=== PATIENT | male | born 1960 | race Caucasian/White ===

== ENCOUNTER 2024-01-01 06:47 | Observation (INO) | payer OTHER, SELFPAY ==
[2024-01-01] VITALS (34 sets, daily range): BP systolic 97–133; BP diastolic 63–77; PULSE 46–71; TEMP 36.4–36.7; O2SAT 93–99; BMI 33.2; BMI 33.8
--- NOTE | 2024-01-01 07:28 | ECG_ITS ---
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
--- NOTE | 2024-01-01 07:28 | XR_ITS ---
The [address] [address] Patient Name: BERNICE JOYA MRN: [id number] date: 1960 Sex: M Assigned Patient Location: ED.MAIN Current Patient Location: ER Accession/Order Number: [id number] Exam Date: 01/01/2024 08:20 Report Date: 01/01/2024 08:42 At the request of: ROLF BUCHANAN Procedure: XR chest 1V EXAM: XR chest 1V HISTORY: Syncope. COMPARISON: Chest radiograph dated 01/28/2013 and CTA chest dated 10/31/2014. TECHNIQUE: AP erect portable chest radiograph performed. FINDINGS: The trachea is midline. There is stable mild prominence of the cardiac silhouette. The mediastinal silhouette and hilar shadows are within normal limits. There is no consolidation, pleural effusion or pulmonary vascular congestion. There is no pneumothorax. There is no acute osseous abnormality. XR/XR chest 1V IMPRESSION: There is no acute cardiopulmonary process. Please correlate with the CTA chest examination dated 01/01/2024 which has been ordered however not yet completed. Electronically authenticated by: AD SALAZAR Date: 01/01/2024 08:42
--- NOTE | 2024-01-01 07:28 | CT_ITS ---
The [address] [address] Patient Name: BERNICE JOYA MRN: [id number] date: 1960 Sex: M Assigned Patient Location: ER Current Patient Location: ER Accession/Order Number: [id number] Exam Date: 01/01/2024 08:20 Report Date: 01/01/2024 08:58 At the request of: ROLF BUCHANAN Procedure: CT head/brain wo con CT head/brain wo con, 01/01/2024 8:20 AM EDT INDICATION: syncope COMPARISON: There is no appropriate prior study for comparison. TECHNIQUE: Axial CT images of the brain from skull base to vertex, including portions of the face and sinuses, were obtained without contrast . Multiplanar reformatted images were generated and reviewed as needed. Dose reduction techniques were achieved by using automated exposure control and/or adjustment of mA and/or kV according to patient size and/or use of iterative reconstruction technique. FINDINGS: The cerebral sulci as well as ventricular system are appropriate for age. There is no intracranial mass, mass effect, midline shift, intra or extra-axial fluid collection or hemorrhage. Mucosal thickening within the maxillary right frontal sinuses is noted. The visualized portions of orbits, mastoid air cells as well as remainder of paranasal sinuses are unremarkable. There is focal lysis of the left frontal inner table. Otherwise, no other suspicious intraosseous lesion is noted. CT/CT head/brain wo con IMPRESSION: No acute intracranial process is noted. Focal lysis of the left frontal inner table. A nonurgent MRI with injection of contrast is recommended for further evaluation. Electronically authenticated by: SD ALVARADO Date: 01/01/2024 08:58
--- NOTE | 2024-01-01 07:28 | CT_ITS ---
[address] [address] Patient Name: BERNICE JOYA MRN: [id number] date: 1960 Sex: M Assigned Patient Location: ER Current Patient Location: [facility] Accession/Order Number: [id number] Exam Date: 01/01/2024 08:20 Report Date: 01/01/2024 09:07 At the request of: ROLF BUCHANAN Procedure: CT angio chest EXAMINATION: CT angio chest HISTORY: syncope, hx of PE COMPARISON: No relevant comparison available. TECHNIQUE: Multi-planar CT images were created with IV contrast. Axial, Coronal, and Sagittal images. Dose reduction techniques were achieved by using automated exposure control and/or adjustment of mA and/or kV according to patient size and/or use of iterative reconstruction technique. FINDINGS: LUNGS: Calcified nodule left lower lobe likely granuloma. Minimal dependent atelectasis. PLEURA: No mass, effusion, or pneumothorax. VASCULATURE: Normal postcontrast opacification of the central pulmonary arterial tree VENU: No mass or adenopathy. MEDIASTINUM: No mass or adenopathy. CARDIAC: No enlargement or pericardial effusion Coronary arteries: Absent calcifications AORTA: No aortic aneurysm or dissection CHEST WALL: No mass or axillary adenopathy. BONES: No bone lesion or fracture. LIMITED ABDOMEN: No suspicious findings. Limited images of the upper abdomen. OTHER: Negative. CT/CT angio chest IMPRESSION: No central pulmonary thromboembolic disease Electronically authenticated by: WINSTON ARCHIBALD Date: 01/01/2024 09:07
--- NOTE | 2024-01-01 07:35 | ED.GENADUL1 ---
HPI HPI - General Adult General Chief complaint: Weakness Stated complaint: GENERAL WEAKNESS Time Seen by Provider: 01/01/24 07:13 Source: patient Mode of arrival: Wheelchair Limitations: no limitations History of Present Illness HPI narrative: Patient presents to ED complaining of lightheadedness and a syncopal episode this morning. Patient is 63 years old no prior cardiac history. He denies chest pain or shortness of breath. He states when he was getting up this morning to get ready for work on his way and he was started to get lightheaded and dizzy and tunnel vision on his drive then. He made it to the parking lot and had called his . He said after he called his he did pass out in the car and he thinks it was about for 3 or 4 minutes. He said yesterday everything was fine he worked but ate and drink like normal, he has not felt sick. He said this morning he woke up okay but then this all started coming on in the car on the way to work. The does report that this has happened in the past but it has been years and typically they cannot find anything wrong. 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 He denies any leg pain or swelling. He denies chest pain or pain with breathing. He is not hypoxic. His heart rate is in the 50s and his blood pressure is borderline low at 103/60. He takes a cholesterol medication but other than that he is not on any medication. He does not have a heart doctor. He has not had any history of heart cath or stents. He denies any specific weakness in his arms or legs. He just reports that he felt lightheaded got the tunnel vision and then passed out. He denies any dark stool or blood in the stool recently. No abdominal pain. The does report there is been some stressful things in the family recently and he sometimes holds in his anxiety and stress and she is wondering if this could have played into it. Patient states the stressful things have actually gotten a little bit better and he does not think that is what is going on at this time. Related Data Home Medications ?Medication ?Instructions ?Recorded ?Confirmed atorvastatin 10 mg tablet 10 mg PO DAILY 01/01/24 01/01/24 buspirone 5 mg tablet 7.5 mg PO BID 01/01/24 01/01/24 trazodone 50 mg tablet 50 mg PO .QHS 01/01/24 01/01/24 Allergies Allergy/AdvReac Type Severity Reaction Status Date / Time No Known Drug Allergies Allergy Verified 01/01/24 06:58 Opioid HPI Opioid Management Most Recent Opioid Data: No Data to Display Review of Systems ROS Status of ROS 10 or more systems reviewed and unremarkable except as noted in history and below Exam Narrative Exam Narrative: Time Seen: [] Vital Signs: [Per nurse's notes.] General: [Alert] Skin: [Warm, dry, no rash.] Head: [Normocephalic, atraumatic.] Neck: [Supple, trachea midline.] Eye: [Pupils are equal, round and reactive to light, extraocular movements are intact, normal conjunctiva.] Ears, nose, mouth and throat: oral mucosa moist. Cardiovascular: [Regular rate and rhythm, no murmur.] Respiratory: [Lungs are clear to auscultation, respirations are non-labored, breath sounds are equal.] Chest wall: [No tenderness, no deformity.] Gastrointestinal: [Soft, nontender, non distended, normal bowel sounds.] MSK: 5 out of 5 muscle strength x 4 extremities no calf pain or edema Lymphatics: [No lymphadenopathy.] Psychiatric: [Cooperative, appropriate mood & affect.] Neurological: [Alert and oriented to person, place, time, and situation, no focal neurological deficit observed.] Constitutional Vital Signs, click to edit/add: Last Vital Signs Temp 97.6 F 01/01/24 06:50 Pulse 55 L 01/01/24 10:00 Resp 12 01/01/24 10:00 BP 109/75 01/01/24 10:00 Pulse Ox 98 01/01/24 10:00 O2 Del Method Room Air 01/01/24 06:50 Course Course Hospital Course: Orthostatics Laying, heart rate 57, blood pressure 97/64 Sitting, heart rate 69, blood pressure 114/70 Standing, heart rate 59, blood pressure 103/70 Vital Signs Vital signs: Vital Signs Temperature 97.6 F 01/01/24 06:50 Pulse Rate 52 L 01/01/24 06:50 Respiratory Rate 16 01/01/24 06:50 Blood Pressure 111/73 01/01/24 06:50 Pulse Oximetry 94 L 01/01/24 06:50 Oxygen Delivery Method Room Air 01/01/24 06:50 Temperature 97.6 F 01/01/24 06:50 Pulse Rate 55 L 01/01/24 10:00 Respiratory Rate 12 01/01/24 10:00 Blood Pressure 109/75 01/01/24 10:00 Pulse Oximetry 98 01/01/24 10:00 Oxygen Delivery Method Room Air 01/01/24 06:50 Medical Decision Making MDM Narrative Medical decision making narrative: Patient had a syncopal episode today that he thinks lasted 3 to 4 minutes. There is a lesion on his brain scan that radiology request further evaluation with an MRI. It is unclear at this time if that has anything to do with the syncopal episode today. His blood pressure was a little bit low and his heart rate is slow. He may have simply been dehydrated. His potassium was little bit low as well. Again unclear as to what called the syncope so I think he needs further workup with an MRI as well as cardiology consultation if admitting physician agrees. I called and spoke to Dr. Bradford who agrees with med telemetry observation admit. Patient and family are comfortable care plan for admission he is stable here in ED. Differential Diagnosis Differential Diagnosis: Stroke, ACS, brain lesion, electrolyte abnormality, dehydration, Syncope Medical Records Medical records reviewed: Yes I reviewed the patient's medical records Lab Data Lab results reviewed: Yes I reviewed the patient's lab results Labs: Lab Results 01/01/24 Range/Units 07:00 WBC 5.5 (4.0-11.0) 10^3/uL RBC 4.91 (4.70-6.10) 10^6/uL Hgb 13.4 L (14.0-18.0) g/dL Hct 41.9 L (42.0-54.0) % MCV 85.3 (80.0-94.0) fL MCH 27.3 (25.9-34.0) pg MCHC 32.0 (29.9-35.2) g/dL RDW 13.7 (11.0-15.0) % Plt Count 254 (150-450) 10^3/uL MPV 9.0 L (9.5-13.5) fL Neut % (Auto) 51.6 (43.0-75.0) % Lymph % (Auto) 28.5 (20.5-60.0) % Mchenry % (Auto) 15.4 H (1.7-12.0) % Eos % (Auto) 3.1 (0.9-7.0) % Baso % (Auto) 0.7 (0.2-2.0) % Neut # (Auto) 2.8 (1.4-6.5) 10^3/uL Lymph # (Auto) 1.6 (1.2-3.8) 10^3/uL Mchenry # (Auto) 0.8 (0.3-0.8) 10^3/uL Eos # (Auto) 0.2 (0.0-0.7) 10^3/uL Baso # (Auto) 0.0 (0.0-0.1) 10^3/uL Abs Immat Gran (auto) 0.04 H (0.00-0.03) 10^3/uL Imm/Tot Granulo (auto) 0.7 H (0.0-0.5) % Sodium 142 (136-145) mmol/L Potassium 3.3 L (3.5-5.1) mmol/L Chloride 105 (98-107) mmol/L Carbon Dioxide 28.6 (21.0-32.0) mmol/L Anion Gap 11.7 BUN 22.0 H (7.0-18.0) mg/dL Creatinine 1.29 (0.70-1.30) mg/dL Est GFR ( Amer) >60 (>=60) Est GFR (Non-Af Amer) 57 L (>=60) BUN/Creatinine Ratio 17.1 Glucose 148 H (74-106) mg/dL Calcium 8.9 (8.5-10.1) mg/dL Total Bilirubin 0.5 (0.2-1.0) mg/dL AST 26 (15-37) U/L ALT 42 (16-63) U/L Alkaline Phosphatase 107 (46-116) U/L Troponin I High Sens 7.4 (4.0-76.1) pg/mL Total Protein 7.1 (6.4-8.2) g/dL Albumin 3.6 (3.4-5.0) g/dL Globulin 3.5 g/dL Albumin/Globulin Ratio 1.[address] scan - head: Radiologist's impression: ITS Impressions Chest CTA 01/01/24 07:28 IMPRESSION: No central pulmonary thromboembolic disease Electronically authenticated by: WINSTON ARCHIBALD Date: 01/01/2024 09:07 Chest X-Ray 01/01/24 07:28 IMPRESSION: There is no acute cardiopulmonary process. Please correlate with the CTA chest examination dated 01/01/2024 which has been ordered however not yet completed. Electronically authenticated by: AD SALAZAR Date: 01/01/2024 08:[address] 01/01/24 07:28 IMPRESSION: No acute intracranial process is noted. Focal lysis of the left frontal inner table. A nonurgent MRI with injection of contrast is recommended for further evaluation. Electronically authenticated by: SD ALVARADO Date: 01/01/2024 08:58 ECG Data Attestation: I personally reviewed and interpreted this ECG as follows: Interpretation: EKG INTERPRETATION Time: []657 Rate: []54 Rhythm: _ []Sinus bradycardia ST segments: _ []No acute ST elevation or depression. No evidence of heart block T waves: _ [] Ectopy: _ [] P wave/ME interval: _ [] QRS interval: _ [] QT interval: _ [] Comparison: _ [] Comparison EKG date: [] Performed by: [self] Discharge Plan Discharge Chief Complaint: Weakness Clinical Impression: Syncope, Hypokalemia Patient Disposition: Admitted as Observation Time of Disposition Decision: 10:46 Condition: Fair Prescriptions / Home Meds: No Action atorvastatin 10 mg tablet 10 mg PO DAILY buspirone 5 mg tablet 7.5 mg PO BID trazodone 50 mg tablet 50 mg PO .[facility] Print Language: Yi Referrals: KAITLYN BOTELLO [Primary Care Provider] - 1 week
[2024-01-01 07:39] LABS: Basophils Percent Auto 0.7 % (0.2-2.0); Eosinophils Absolute Auto 0.2 10^3/uL (0.0-0.7); Eosinophils Percent Auto 3.1 % (0.9-7.0); Hematocrit 41.9 % (42.0-54.0); Hemoglobin 13.4 g/dL (14.0-18.0); Immature Granulocytes Abs Auto 0.04 10^3/uL (0.00-0.03); Immature Granulocytes Pct Auto 0.7 % (0.0-0.5); Lymphocytes Absolute Auto 1.6 10^3/uL (1.2-3.8); Lymphocytes Percent Auto 28.5 % (20.5-60.0); Mean Corpuscular Hemoglobin 27.3 pg (25.9-34.0); Mean Corpuscular Volume 85.3 fL (80.0-94.0); Monocytes Absolute Auto 0.8 10^3/uL (0.3-0.8); Monocytes Percent Auto 15.4 % (1.7-12.0); Neutrophils Absolute Auto 2.8 10^3/uL (1.4-6.5); Neutrophils Percent Auto 51.6 % (43.0-75.0); Platelet Count 254 10^3/uL (150-450); Red Blood Count 4.91 10^6/uL (4.70-6.10); Red Cell Distribution Width 13.7 % (11.0-15.0); White Blood Count 5.5 10^3/uL (4.0-11.0)
[2024-01-01] MEDS: 0.9 % SODIUM CHLORIDE 1,000 ML 1000 ML IV (07:40)
[2024-01-01 07:59] LABS: Alanine Aminotransferase 42 U/L (16-63); Albumin Level 3.6 g/dL (3.4-5.0); Alkaline Phosphatase 107 U/L (46-116); Anion Gap 11.7; Aspartate Amino Transferase 26 U/L (15-37); BUN Creatinine Ratio 17.1; Bilirubin Total 0.5 mg/dL (0.2-1.0); Calcium 8.9 mg/dL (8.5-10.1); Carbon Dioxide 28.6 mmol/L (21.0-32.0); Chloride 105 mmol/L (98-107); Estimated GFR (African America >60 (>=60); Estimated GFR (Non-African Ame 57 (>=60); Globulin 3.5 g/dL; Glucose 148 mg/dL (74-106); Potassium 3.3 mmol/L (3.5-5.1); Sodium 142 mmol/L (136-145); Total Protein 7.1 g/dL (6.4-8.2); Troponin I High Sensitivity 7.4 pg/mL (4.0-76.1)
[2024-01-01] MEDS: ONDANSETRON PF 4 MG/2 ML VIAL IV (08:06)
[2024-01-01] MEDS: POTASSIUM CHLORIDE 10 MEQ ER TABLET 20 MEQ PO (08:39)
--- NOTE | 2024-01-01 10:15 | CA_ITS ---
Patient Name: BERNICE JOYA MR#: [id number] : 1960 Exam Date: 01/01/2024 Ordering Doctor: Romina Arredondo ECHOCARDIOGRAM REPORT PROCEDURE: CA ECHO DOPPLER COMPLETE INDICATIONS: Syncope COMPARISON: None. DESCRIPTION: COMPLETE ECHOCARDIOGRAM Real-time transthoracic echocardiography with 2D, M-mode, spectral and color flow Doppler performed. QUALITY: Technical quality was good. LEFT VENTRICLE: Normal chamber size. Borderline left ventricular hypertrophy. Normal systolic function. LV EF: Normal left ventricular ejection fraction, (55%). DIASTOLIC: Normal diastolic function. ATRIAL SEPTUM: LEFT ATRIUM: Normal chamber size. RIGHT ATRIUM: Mild dilatation. RIGHT VENTRICLE: Mild dilatation. Mildly reduced right ventricular systolic function. TRICUSPID VALVE: Normal mobility and thickness. No stenosis with trivial regurgitation. No evidence of pulmonary hypertension. RVSP 30 mmHg MITRAL VALVE: Normal mobility and thickness. No evidence of mitral valve stenosis. Mild mitral annular calcification. No mitral regurgitation. AORTIC VALVE: Normal trileaflet appearance. No visible sclerosis. Normal leaflet mobility. No evidence of aortic valve stenosis. No aortic regurgitation. AORTIC ROOT: Normal diameter and appearance. Ascending aorta is normal in size. PULMONIC VALVE: Normal thickness and mobility. No stenosis. Trivial regurgitation. PERICARDIUM: No evidence of pericardial effusion. IVC: IVC is normal in size, does not fully collapse. PLEURA: CONCLUSION: 1. The left ventricle is normal in size and exhibits normal systolic function. LVEF is 55%. 2. The right ventricle is mildly dilated with mildly reduced systolic function. 3. Mild right atrial dilatation. 4. No significant valvular dysfunction. 5. Normal diastolic function. 6. Normal right-sided pressures. 7. No pericardial effusion. Adult Echocardiography Procedure Report Left Ventricle LVEDD (3.7 - 5.6 cm): 5.00 cm LVESD (2.2 - 4.0 cm): 2.91 cm LVIVS thickness (0.6 - 1.2 cm): 1.00 cm LVPW thickness (0.5 - 1.0 cm): 1.15 cm e': 0.10 m/s E - e': 6.19 LVOT Max Gradient: 2.73 mm[Hg] LVOT Area (cm2): 0.83 m/s Peak Velocity (LVOT): 0.83 m/s Mean Velocity (LVOT): 0.50 m/s LVOT Diameter 2.56 cm Left Atrium LA Volume Index (2D A2C): 32.57 ml/m2 Left Atrium Systolic Dimension: 3.56 cm Mitral Valve MV E to A Ratio: 0.91 Mitral Valve A-Wave Peak Velocity: 0.66 m/s Mitral Valve E-Wave Peak Velocity: 0.60 m/s Right Ventricle Aorta AO Root Diam: 3.43 cm Ascending Ao Diam: 2.70 cm Aortic Valve AoV Area (Peak Ghanshyam): 3.46 cm2, 3.46 cm2 AoV Area (VTI): 3.63 cm2, 3.63 cm2 Peak Velocity(Antegrade Flow): 1.22 m/s Peak Gradient(Antegrade Flow): 5.99 mm[Hg] Mean Velocity(Antegrade Flow): 0.87 m/s Mean Gradient(Antegrade Flow): 3.38 mm[Hg] Velocity Time Integral: 27.17 cm Tricuspid Valve Peak Velocity (Regurgitant Flow): 2.36 m/s Pulmonic Valve Mean Gradient: 1.89 mm[Hg] Mean Velocity: 0.65 m/s Peak Velocity: 0.95 m/s, 0.96 m/s Peak Gradient: 3.68 mm[Hg], 3.62 mm[Hg] Right Atrium Right Atrium Systolic Pressure: 56.06 ml, 56.06 ml Dictated by: Subhash Farah M.D. on 01/03/2024 at 08:32 Approved by: Subhash Farah M.D. on 01/03/2024 at 08:38
--- NOTE | 2024-01-01 11:12 | P.HP_ITS ---
<Statement entered by Shaikh Lolita MD - 01/01/24 15:44> This documentation has been reviewed and approved.Patient seen and examined. Case discussed with ED provider, Hospitalist [facility]. Patient presented to ED after Syncopal episode preceded by feeling lightheaded and weak. Denies CP, SOB, palpitations, confusion after regaining consciousness. Likely vasovagal syncope Abnormal CTH - likely incidental finding but will get an MRI brain. ECHO ordered to asses cardiac stucture. If work up is unremarkable, plan to d/c later in the evening HPI H&P: HPI History of Present Illness Chief complaint: GENERAL WEAKNESS, SYNCOPE, LESION ON HEAD CT Narrative: 01/01/24 1022 This is a 63-year-old male patient with a relatively benign past medical history including hyperlipidemia and anxiety, who presented to the ED after suffering a syncopal episode after arriving at work. He reports starting to feel lightheaded while he was driving to work and he attempted to breathe deeply and relax but he kept feeling dizzy, nauseated, and with fuzzy vision. After he parked his car he attempted to get out and walk into work but felt so lightheaded he thought he would pass out and sat back in his car. He then experienced a syncopal episode of unknown duration, thought to be several minutes by the patient. He called his then and asked her to pick him up and take him to the hospital for further evaluation. He reports that he was fully oriented when he woke up. He also has a remote history of syncopal episodes in the past of unclear etiology, but may have been related to proctalgia that he was experiencing at the time. Workup in the ED was mostly unremarkable with stable vital signs and mild hypokalemia (3.3) noted on labs. Chest x-ray was unremarkable CTA of the chest was negative for thromboembolic disease. CT of the head revealed no acute intracranial process. A focal lysis of the left frontal inner table was noted and a nonemergent MRI with injection of contrast was recommended to further evaluate. The patient is being admitted in observation to the hospitalist service to continue a syncopal workup. At the time of my exam the patient is resting comfortably on a ED cart. He denies any lightheadedness, nausea, or dizziness at the time of my exam. He reports getting up and going to the bathroom earlier while he was in the ED and felt fine during ambulation. He admits to feeling a little anxious prior to onset of dizziness because he forgot to take out the garbage this morning and had to ask his to do it. Remaining work up includes: obtain a 2D echo to assess for any valvular or wall motion abnormalities, monitor his cardiac rhythm with telemetry. We will attempt to obtain a follow-up MRI pending insurance authorization. If the patient remains asymptomatic he will likely be discharged later today w/ a holter monitor to continue cardiac monitoring. Opioid HPI Opioid Management Most Recent Pain and Opioid Data: Last Pain Assessment 01/01/24 14:00 Last ORT Total Score 1 01/01/24 11:09 Last ORT Risk Category Low Risk 01/01/24 11:09 Review of Systems ROS Status of ROS 10 or more systems reviewed and unremark able except as noted in history and below [facility] Medical History (Updated 01/01/24 @ 11:24 by Romina Arredondo NP) Hyperlipidemia ?E78.5 - Hyperlipidemia, unspecified (ICD-10) Anxiety ?F41.9 - Anxiety disorder, unspecified (ICD-10) Social History Highest level of school completed/degree received: high school graduate Do you think of yourself as: straight/heterosexual Gender Identity: male Meds Home Medications and Allergies Home Medications ?Medication ?Instructions ?Recorded ?Confirmed ?Type atorvastatin 10 mg tablet 10 mg PO DAILY 01/01/24 01/01/24 History buspirone 5 mg tablet 7.5 mg PO BID 01/01/24 01/01/24 History trazodone 50 mg tablet 50 mg PO .QHS 01/01/24 01/01/24 History Allergies Allergy/AdvReac Type Severity Reaction Status Date / Time No Known Drug Allergies Allergy Verified 01/01/24 06:58 Exam Constitutional Vital Signs, click to edit/add: Last Vital Signs Temp 97.6 F 01/01/24 06:50 Pulse 55 L 01/01/24 10:00 Resp 12 01/01/24 10:00 BP 109/75 01/01/24 10:00 Pulse Ox 98 01/01/24 10:00 O2 Del Method Room Air 01/01/24 06:50 Common normals: no apparent distress, oriented x3, alert and well nourished General appearance: cooperative Orientation/consciousness: Yes awake [facility] Common normals: normocephalic, head/scalp atraumatic, hearing grossly normal bilaterally, external nose normal and moist oral mucous membranes Eye Common normals: PERRL, EOMs intact bilaterally, conjunctivae normal and no scleral icterus Alignment: alignment normal Eyelid: eyelids normal Neck & C-Spine Common normals: full ROM, supple and no JVD Chest Common normals: inspection of chest normal Chest: symmetrical chest wall rise Respiratory Common normals: normal respiratory effort, no retractions, no use of accessory muscles and clear to auscultation bilaterally Cardio Common normals: no JVD, regular rate, regular rhythm, S1 normal heart sound, S2 normal heart sound, no gallops, no clicks, no murmurs, no rub and peripheral pulses 2+ throughout GI Common normals: Normal to inspection, nondistended, normoactive bowel sounds present, soft to palpation, non-tender, no hepatosplenomegaly, no masses and no bruits Bladder/kidney exam: bladder normal to palpation Back & Pelvis Common normals: thoracic and lumbar spine normal to inspection Extremity Common normals: normal capillary refill and no pedal edema General: normal exam except as noted; no clubbing and no cyanosis Neuro Catalina Coma Scale: GCS not evaluated Common normals: CN's II-XII intact bilaterally, moves all extremities, no focal motor deficits and no sensory deficits noted Speech: speech normal Motor exam: strength 5/5 throughout Psych Common normals: mental status grossly normal, thought process normal, affect normal and activity/motor behavior normal Results Labs Labs: Short CBC 01/01/24 Range/Units 07:00 WBC 5.5 (4.0-11.0) 10^3/uL Hgb 13.4 L (14.0-18.0) g/dL Hct 41.9 L (42.0-54.0) % Plt Count 254 (150-450) 10^3/uL BMP 01/01/24 07:00 Sodium 142 Potassium 3.3 L Chloride 105 Carbon Dioxide 28.6 BUN 22.0 H Creatinine 1.29 Glucose 148 H Calcium 8.9 Liver Function 01/01/24 Range/Units 07:00 Total Bilirubin 0.5 (0.2-1.0) mg/dL AST 26 (15-37) U/L ALT 42 (16-63) U/L Alkaline Phosphatase 107 (46-116) U/L Albumin 3.6 (3.4-5.0) g/dL Pulse Oximetry Attestation: I have reviewed the pertinent pulse oximetry results. ECG Attestation: ?I have reviewed the pertinent ECG results. Interpretation: Sinus rhythm Low QRS voltage in chest leads Atypical ECG No previous ECG available for comparison Imaging Chest x-ray: Attestation: I have reviewed the pertinent imaging results. Radiologist's impression: IMPRESSION: There is no acute cardiopulmonary process. Please correlate with the CTA chest examination dated 01/01/2024 which has been ordered however not yet completed. CT scan - head: Attestation: I have reviewed the pertinent imaging results. Radiologist's impression: IMPRESSION: No acute intracranial process is noted. Focal lysis of the left frontal inner table. A nonurgent MRI with injection of contrast is recommended for further evaluation. CTA Chest: Attestation: I have reviewed the pertinent imaging results. Radiologist's impression: IMPRESSION: No central pulmonary thromboembolic disease Assessment and Plan Assessment and Plan (1) Syncope: Assessment and Plan: Acute * Adm observation * Strongly suspect vasovagal syncope, possibly exacerbated by acute anxiety episode * CTA Chest, CXR unremarkable * CT brain mostly unremarkable - Osseous focal lysis of the L frontal inner table noted, non-emergent MRI w/ contrast recommended. * Orthostatic VS completed in the ED - unremarkable * Continue q shift * Tele monitoring * 2D Echo * Likely d/c later today w/ Holter monitor (2) Hypokalemia: Assessment and Plan: Acute * Mild, 3.3 in ED * KCL 20 mEq given in ED * Unlikely etiology of acute syncope (3) Hyperlipidemia: Assessment and Plan: Chronic * Continue home statin (4) Anxiety: Assessment and Plan: Chronic * Continue home buspirone/trazodone
[2024-01-01 13:04] LABS: Bilirubin Urine NEGATIVE (NEGATIVE); Blood Urine NEGATIVE (NEGATIVE); Clarity Urine CLEAR (CLEAR); Color Urine YELLOW (YELLOW); Glucose Urine UA NEGATIVE (NEGATIVE); Ketones Urine NEGATIVE (NEGATIVE); Leukocyte Esterase Urine NEGATIVE (NEGATIVE); Nitrite Urine NEGATIVE (NEGATIVE); Protein Urine NEGATIVE (NEG/TRACE); Urobilinogen Urine 0.2 EU/dL (0.2-1.0)
[2024-01-01 13:05] LABS: Urine Microscopic Indicated NO
--- NOTE | 2024-01-01 15:00 | MR_ITS ---
The [address] [address] Patient Name: BERNICE JOYA MRN: [id number] date: 1960 Sex: M Assigned Patient Location: [place] Current Patient Location: [place] Accession/Order Number: [id number] Exam Date: 01/01/2024 14:30 Report Date: 01/02/2024 00:43 At the request of: BEATA PEARSON Procedure: MR head/brain wo/w con INDICATION: 63 years old; Male. Symptom/Location/Duration: Abnormality seen on CT. TECHNIQUE: Multiplanar MRI brain was performed with and without IV contrast (Dotarem): 20 mL . No complications.. Comparison: Head CT dated 01/01/2024 at 8:25 AM. FINDINGS: POSTOPERATIVE CHANGES: None. BRAIN PARENCHYMA: No restricted diffusion. No mass effect. No midline shift or herniation. No hemosiderin deposition. Scattered nonspecific punctate foci of hyperintensity in the white matter best seen on the FLAIR images. No restricted diffusion is present. No pathologic enhancement is seen. VENTRICLES/EXTRA-AXIAL: Normal for patient's age. VESSELS: There is flow void seen in the distal vertebral and basilar arteries as well as the distal internal carotid arteries. This study cannot exclude the presence of an intracranial aneurysm. SINUSES/MASTOIDS: These are periosteal thickening is present in the maxillary and ethmoid sinuses bilaterally. Frontal sinus thickening is present on the right. Mastoids and middle ears are clear. MSK: No bony destructive lesions are appreciated. The cystic attention to the area of calvarial abnormality demonstrates no bone destruction or pathologic enhancing lesions. There is tubular appearing signal noted within the lesion. This has the appearance of a large venous brooks. If there is continued concern, then follow-up would be appropriate. OTHER: None. MR/MR head/brain wo/w con IMPRESSION: 1. No restricted diffusion, mass effect, or pathologic enhancement. No hemosiderin deposition. 2. Nonspecific white matter changes. 3. No enhancing epidural soft tissue masses are appreciated. The area of concern within the calvarium demonstrates tubular appearing signal. The appearance is most consistent with an enlarged venous brooks. Electronically authenticated by: BERNICE HURTADO Date: 01/02/2024 00:43
--- NOTE | 2024-01-03 13:32 | CM.DCFOLLOWU ---
Person spoke with: patient How are you feeling? well How is your pain? none Did you understand your discharge instructions? yes Do you have any questions about your discharge instructions? no Were you given any prescriptions at discharge? no Were you able to get your prescriptions filled? N/A Do you understand how to take your medications as ordered? yes Do you have any questions about your follow up appointment and do you plan to keep your follow up appointment? no questions, reviewed follow ups Is there anything else that you would like to discuss? no Questions/Comments/Concerns/Other:
== END 2024-01-01 17:15 | disposition home or self-care (01) ==
LOC: ER 10:48 → MS 10:58
PROVIDERS: Nurse Practitioner; Admitting Provider Internal Medicine; Emergency Provider Emergency Medicine; PCP Family Medicine; Visit Provider Internal Medicine
DX: R55 Syncope and collapse (principal); E87.6 Hypokalemia; E78.5 Hyperlipidemia, unspecified; F41.9 Anxiety disorder, unspecified; R93.0 Abnormal findings on diagnostic imaging of skull and head, not elsewhere classified; Z79.899 Other long term (current) drug therapy
CPT/HCPCS: 36415; 70450; 70553; 71045; 71275; 80053; 81003; 84484; 85025; 93005; 93242; 93306; 96361; 96374; 99285; A9575; G0378; J2405; Q9967